=== PATIENT | female | born 2000 | race Caucasian/White ===

== ENCOUNTER 2024-01-29 06:07 | Emergency (ER) | payer OTHER ==
[2024-01-29 06:24] VITALS: BP 115/62; PULSE 91; RESP 18; TEMP 98.6; BMI 21.6
[2024-01-29] MEDS: ALBUTEROL SO4 2.5/IPRATROPIUM 0.5 INH SOL 3 ML VIAL.NEB. NEB SCH (06:42)
[2024-01-29 07:04] LABS: BASO % 0.2 % (0-2.0); EOS % 1.2 % (0-4.5); HEMATOCRIT 33.8 % (32.4-45.2); HEMOGLOBIN 11.2 GM/dL (10.7-15.3); LYMPH % 17.9 % (8-40); MCH 31.1 pg (25.7-33.7); MCHC 33.1 g/dl (32.0-36.0); MEAN CELL VOLUME 93.8 fl (80-96); MEAN PLT VOLUME 7.5 fl (7.5-11.1); MONO % 8.6 % (3.8-10.2); NEUT % 72.1 % (42.8-82.8); PLATELET COUNT 245 10^3/uL (134-434); RBC 3.61 M/mm3 (3.60-5.2); RDW 13.2 % (11.6-15.6); WHITE BLOOD COUNT 9.9 K/mm3 (4.0-10.0)
[2024-01-29] MEDS ORDERED: ALBUTEROL SO4 2.5/IPRATROPIUM 0.5 INH SOL 3 ML VIAL.NEB. NEB ONE ×2 (07:04→09:08)
[2024-01-29 07:09] LABS: POTASSIUM 3.8 mmol/L (3.5-5.1)
[2024-01-29 07:11] LABS: CALCIUM 8.9 mg/dL (8.5-10.1)
[2024-01-29 07:12] LABS: ALBUMIN 3.8 g/dl (3.4-5.0); BLOOD UREA NITROGEN 9.9 mg/dL (7-18); MAGNESIUM 1.6 mg/dL (1.8-2.4)
[2024-01-29 07:15] LABS: CREATININE 0.7 mg/dL (0.55-1.3)
[2024-01-29 07:16] LABS: BILIRUBIN,TOTAL 1.1 mg/dL (0.2-1)
[2024-01-29] MEDS ORDERED: MAGNESIUM SULFATE IN WATER 2 GM/50 ML IVPB IVPB ONE (07:21)
[2024-01-29] MEDS: MAGNESIUM SULF 50% (8.12 MEQ/2 ML-1 GM VIAL) IVPB ONE (07:31)
[2024-01-29] MEDS ORDERED: DEXAMETHASONE SOD PHOSPHATE 10 MG/1 ML VIAL ONE (08:39)
[2024-01-29] MEDS: DEXAMETHASONE SOD PHOSPHATE 10 MG/1 ML VIAL IVPUSH ONE (08:54)
[2024-01-29] MEDS: ALBUTEROL SO4 2.5/IPRATROPIUM 0.5 INH SOL 3 ML VIAL.NEB. NEB ONE ×2 (09:14)
== END 2024-01-29 10:10 | disposition home or self-care (01) ==
LOC: JER 06:07
PROC: 3E033GC Introduction of Other Therapeutic Substance into Peripheral Vein, Percutaneous Approach (ICD-10-PCS; principal; 2024-01-29)
PROC: 3E033GC Introduction of Other Therapeutic Substance into Peripheral Vein, Percutaneous Approach (ICD-10-PCS; 2024-01-29)
PROC: 3E0F7GC Introduction of Other Therapeutic Substance into Respiratory Tract, Via Natural or Artificial Opening (ICD-10-PCS; 2024-01-29)
PROC: 3E0F7GC Introduction of Other Therapeutic Substance into Respiratory Tract, Via Natural or Artificial Opening (ICD-10-PCS; 2024-01-29)
DX: R05.9 Cough, unspecified (principal); J02.9 Acute pharyngitis, unspecified; J45.909 Unspecified asthma, uncomplicated
CPT/HCPCS: 36415; 71046-TC-FY; 80053; 83735; 85025; 93005; 93010; 99285-25; J1100

== ENCOUNTER 2024-02-09 22:44 | Emergency (ER) | payer OTHER ==
[2024-02-09 22:50] VITALS: BP 121/79; PULSE 115; RESP 20; TEMP 99; BMI 21.6
[2024-02-09] MEDS ORDERED: ONDANSETRON 4 MG TABLET PO ONE (23:42)
[2024-02-09] MEDS: ONDANSETRON 4 MG TABLET PO ONE (23:43)
[2024-02-09] MEDS: AZITHROMYCIN 250 MG TABLET PO ONE (23:58)
[2024-02-09] MEDS ORDERED: AZITHROMYCIN 500 MG TABLET ONE (23:58)
[2024-02-10] MEDS: SODIUM CHLORIDE 0.9% 500 ML INFUS.BAG IV ONE (00:12)
== END 2024-02-10 01:21 | disposition home or self-care (01) ==
LOC: JER 22:44
DX: J18.9 Pneumonia, unspecified organism (principal); R53.1 Weakness; R42 Dizziness and giddiness; R05.9 Cough, unspecified; R09.81 Nasal congestion; J02.9 Acute pharyngitis, unspecified; R19.7 Diarrhea, unspecified; R50.9 Fever, unspecified; R11.2 Nausea with vomiting, unspecified; R00.0 Tachycardia, unspecified; Z20.822 Contact with and (suspected) exposure to COVID-19
CPT/HCPCS: 0241U-QW; 71046-TC-FY; 99284-25